=== PATIENT | male | born 1950 | race Caucasian/White ===

== ENCOUNTER 2023-12-29 06:59 | Outpatient (RCR) | payer MEDICARE, SELFPAY | END 2024-01-01 14:47 | disposition home or self-care (01) | LOC: OT 06:59 | PROVIDERS: Family Provider Internal Medicine; PCP Nurse Practitioner Family; Visit Provider Nurse Practitioner Family | DX: M72.0 Palmar fascial fibromatosis [Dupuytren] (principal) | CPT/HCPCS: 97165; 97760 ==